=== PATIENT | female | born 1960 | race Caucasian/White ===

== ENCOUNTER 2021-06-14 10:46 | Inpatient (IN) | payer BC ==
[~2021-06-14] VITALS: Ht 149.9 cm; Wt 62.6 kg
[2021-06-14 11:51] LABS: BASOPHILS % 0.8 % (0.0-2.0); EOSINOPHILS % 1.1 % (0.0-5.0); HEMATOCRIT. 41.3 % (36.0-48.0); HEMOGLOBIN. 14.2 g/dL (12.0-16.0); LYMPHOCYTES % 25.1 % (20.0-50.0); MEAN CORPUSCULAR HEMOGLOBIN 30.2 pg (28.0-32.0); MEAN CORPUSCULAR VOLUME 88.1 fL (81.0-99.0); MEAN PLATELET VOLUME 8.9 fl (7.4-10.4); MONOCYTES % 6.3 % (2.0-8.0); NEUTROPHILS % 66.7 % (40.0-76.0); PLATELET 184 x1000/uL (130-400); RED BLOOD CELL COUNT 4.69 mill/uL (4.2-5.4); RED CELL DISTRIBUTION WIDTH 13.5 % (11.6-14.6)
[2021-06-14 11:55] LABS: CHLORIDE 108 mEq/L (98-107)
[2021-06-14] MEDS ORDERED: LORAZEPAM 2MG/ML CPJ IV ONE (13:00)
[2021-06-14] MEDS ORDERED: DOCUSATE SODIUM 100MG CAPSULE PO PRN (21:45)
[2021-06-14] MEDS ORDERED: CLONIDINE 0.1MG TABLET PO PRN (21:45)
[2021-06-14] MEDS ORDERED: MAGNESIUM/ALUMINUM HYDROXIDE/SIMETHICONE 30ML UDC PO PRN (21:45)
[2021-06-14] MEDS ORDERED: HYDROMORPHONE HCL/PF 2MG/ML CPJ IV PRN (21:45)
[2021-06-14] MEDS ORDERED: NALOXONE HCL 0.4MG/ML VIAL IV PRN (22:00)
[2021-06-14 22:12] VITALS: BP 119/67
[2021-06-14] MEDS ORDERED: IBUP-2029 PO (22:37)
[2021-06-14] MEDS ORDERED: MONT10TA21 PO (22:37)
[2021-06-14] MEDS ORDERED: PREG150C PO (22:37)
[2021-06-14] MEDS ORDERED: SIMV20TA2 PO (22:37)
[2021-06-14] MEDS ORDERED: CHLO4TAB PO (22:37)
[2021-06-14] MEDS ORDERED: MELO15TA13 PO (22:37)
[2021-06-14] MEDS: ENOXAPARIN 40MG/0.4ML SYR SUBCUT SCH (22:49)
[2021-06-14 23:00] VITALS: BP 119/67
[2021-06-15] VITALS: BP 106/55
[2021-06-15 04:00] VITALS: BP 106/62
[2021-06-15 06:23] LABS: BASOPHILS % 0.6 % (0.0-2.0); EOSINOPHILS % 1.5 % (0.0-5.0); HEMATOCRIT. 43.1 % (36.0-48.0); HEMOGLOBIN. 14.6 g/dL (12.0-16.0); LYMPHOCYTES % 30.3 % (20.0-50.0); MEAN CORPUSCULAR HEMOGLOBIN 30.1 pg (28.0-32.0); MEAN CORPUSCULAR VOLUME 89.2 fL (81.0-99.0); MEAN PLATELET VOLUME 9.5 fl (7.4-10.4); MONOCYTES % 8.4 % (2.0-8.0); NEUTROPHILS % 59.2 % (40.0-76.0); PLATELET 196 x1000/uL (130-400); RED BLOOD CELL COUNT 4.83 mill/uL (4.2-5.4); RED CELL DISTRIBUTION WIDTH 13.6 % (11.6-14.6)
[2021-06-15 06:27] LABS: CHLORIDE 107 mEq/L (98-107)
[2021-06-15 06:36] LABS: LDL CHOLESTEROL 119 mg/dL (5-100)
[2021-06-15 06:37] LABS: HDL CHOLESTEROL 47 mg/dL (40-59)
[2021-06-15 08:00] VITALS: BP 115/62
[2021-06-15] MEDS: METOPROLOL TARTRATE 25MG TABLET PO SCH ×2 (10:02→17:00)
[2021-06-15] MEDS: ACETAMINOPHEN 325MG TABLET PO PRN ×2 (11:38→18:15)
[2021-06-15] MEDS ORDERED: REGADENOSON 0.4 MG/5 ML IV ONE (11:45)
[2021-06-15] MEDS: MELOXICAM 7.5MG TABLET PO SCH (13:24)
[2021-06-15] MEDS: ASPIRIN 81MG EC TABLET PO SCH (13:24)
[2021-06-15] MEDS: ONDANSETRON HCL 4MG/2ML INJ IV PRN (13:35)
[2021-06-15] MEDS ORDERED: PREGABALIN 75MG CAPSULE PO SCH (14:00)
[2021-06-15 16:00] VITALS: BP 95/54
[2021-06-15] MEDS: PREGABALIN 75MG CAPSULE PO SCH (18:15)
[2021-06-15 20:42] VITALS: BP 102/58
[2021-06-15] MEDS: ENOXAPARIN 40MG/0.4ML SYR SUBCUT SCH (20:57)
[2021-06-15] MEDS ORDERED: ATORVASTATIN CALCIUM 40MG TABLET PO SCH (21:00)
[2021-06-16 00:01] VITALS: BP 110/48
[2021-06-16 04:00] VITALS: BP 101/51
[2021-06-16 06:09] LABS: CHLORIDE 108 mEq/L (98-107)
[2021-06-16 06:12] LABS: BASOPHILS % 0.6 % (0.0-2.0); HEMATOCRIT. 41.3 % (36.0-48.0); HEMOGLOBIN. 13.9 g/dL (12.0-16.0); LYMPHOCYTES % 35.3 % (20.0-50.0); MEAN CORPUSCULAR VOLUME 89.3 fL (81.0-99.0); MEAN PLATELET VOLUME 9.3 fl (7.4-10.4); MONOCYTES % 7.8 % (2.0-8.0); NEUTROPHILS % 54.3 % (40.0-76.0); PLATELET 181 x1000/uL (130-400); RED BLOOD CELL COUNT 4.62 mill/uL (4.2-5.4); RED CELL DISTRIBUTION WIDTH 13.5 % (11.6-14.6)
[2021-06-16 07:47] VITALS: BP 104/58
[2021-06-16] MEDS ORDERED: MONTELUKAST SODIUM 10MG TABLET PO SCH (09:00)
[2021-06-16] MEDS ORDERED: REGADENOSON 0.4 MG/5 ML IV ONE (10:12)
[2021-06-16 11:13] VITALS: BP 120/71
[2021-06-16] MEDS: ONDANSETRON HCL 4MG/2ML INJ IV PRN (11:24)
[2021-06-16] MEDS: MELOXICAM 7.5MG TABLET PO SCH (11:57)
[2021-06-16] MEDS: PREGABALIN 75MG CAPSULE PO SCH ×2 (11:57→13:00)
[2021-06-16] MEDS: ACETAMINOPHEN 325MG TABLET PO PRN (11:58)
[2021-06-16] MEDS: ASPIRIN 81MG EC TABLET PO SCH (11:58)
[2021-06-16] MEDS: METOPROLOL TARTRATE 25MG TABLET PO SCH (11:58)
[2021-06-16 15:12] VITALS: BP 112/65
== END 2021-06-16 15:25 | disposition home or self-care (01) | DRG 311 ==
LOC: ER 10:46 → 6WST 19:02 → EDBEDREQ 19:05 → EDBEDREQTM 19:05 → ENRESERV 19:59
PROVIDERS: ADMIT Hospitalist; ATTEND Hospitalist
PROC: 4A02XM4 Measurement of Cardiac Total Activity, External Approach (ICD-10-PCS; principal; 2021-06-16)
PROC: 3E033HZ Introduction of Radioactive Substance into Peripheral Vein, Percutaneous Approach (ICD-10-PCS; 2021-06-16)
DX: I20.9 Angina pectoris, unspecified (principal); I10 Essential (primary) hypertension; M79.7 Fibromyalgia; E78.5 Hyperlipidemia, unspecified; K58.9 Irritable bowel syndrome, unspecified; E78.00 Pure hypercholesterolemia, unspecified; R73.03 Prediabetes; E78.1 Pure hyperglyceridemia; R61 Generalized hyperhidrosis; R73.9 Hyperglycemia, unspecified; J45.909 Unspecified asthma, uncomplicated; I45.10 Unspecified right bundle-branch block; Z82.3 Family history of stroke; Z84.89 Family history of other specified conditions; Z88.1 Allergy status to other antibiotic agents; Z79.899 Other long term (current) drug therapy; Z90.49 Acquired absence of other specified parts of digestive tract
CPT/HCPCS: 36415; 71045; 78452; 80048; 80053; 80061; 83880; 84484; 85025; 93005; 93017; 93306; 93970; 99285; A9500; C1893; J1650; J2060; J2405; J2785